=== PATIENT | female | born 1940 | race Two or more races ===

== ENCOUNTER 2019-07-18 11:21 | Inpatient (IN) | payer OTHER, MEDICAID ==
[~2019-07-18] VITALS: Ht 157.5 cm; Wt 49.4 kg
[2019-07-18] MEDS ORDERED: FAMOTIDINE 20MG/2ML VIAL IV STA (11:52)
[2019-07-18] MEDS ORDERED: SODIUM CHLORIDE 0.9% 1,000 ML IV ONE (11:52)
[2019-07-18] MEDS ORDERED: ONDANSETRON HCL 4MG/2ML INJ IV STA (11:52)
[2019-07-18 12:26] LABS: HEMATOCRIT. 48.3 % (36.0-48.0); HEMOGLOBIN. 16.4 g/dL (12.0-16.0); MEAN CORPUSCULAR HEMOGLOBIN 30.7 pg (28.0-32.0); MEAN CORPUSCULAR VOLUME 90.8 fL (81.0-99.0); MEAN PLATELET VOLUME 8.7 fl (7.4-10.4); PLATELET 330 x1000/uL (130-400); RED BLOOD CELL COUNT 5.32 mill/uL (4.2-5.4); RED CELL DISTRIBUTION WIDTH 13.6 % (11.6-14.6)
[2019-07-18 12:31] LABS: CHLORIDE 96 mEq/L (98-107)
[2019-07-18 12:31] LABS: BG BASE EXCESS -13.6 mmol/L (-2.0-2.0); BG CARBOXYHEMOGLOBIN 0.9 % (0.5-1.5); BG DEOXYHEMOGLOBIN 5.4 % (0.0-5.0); BG FRACTION INSPIRED OXYGEN 21; BG HCO3 ACT 11.7 mmol/L (22.0-26.0); BG METHEMOGLOBIN 0.2 % (0.0-1.5); BG OXYGEN SATURATION 94.5 % (92.0-98.5); BG OXYHEMOGLOBIN 93.5 % (94.0-97.0); BG PCO2 26.9 mmHg (35.0-45.0); BG PH 7.257 (7.350-7.450); BG SAMPLE SITE RIGHT BRACHIAL; BG TOTAL HEMOGLOBIN 15.9 g/dL (12.0-18.0); BG VENT MODE ROOM AIR
[2019-07-18 13:01] LABS: PLATELET ESTIMATE NORMAL
[2019-07-18] MEDS ORDERED: SODIUM BICARBONATE 8.4% 1 MEQ/ML 50ML SYR IV ONE (14:00)
[2019-07-18] MEDS ORDERED: LEVOFLOXACIN 500MG PREMIX 100 ML IV ONE (14:00)
[2019-07-18 15:40] VITALS: BP 110/56
[2019-07-18] MEDS ORDERED: AMLO2.5T45 MT (16:49)
[2019-07-18] MEDS ORDERED: METF-414 MT (16:49)
[2019-07-18] MEDS ORDERED: MORPHINE SULFATE 2 MG/ML CPJ (NOT FOR IM USE) IV PRN (18:45)
[2019-07-18] MEDS ORDERED: ONDANSETRON HCL 4MG/2ML INJ IV PRN (18:45)
[2019-07-18] MEDS ORDERED: DEXTROSE 50% WATER 50ML SYRINGE IV PRN (18:45)
[2019-07-18] MEDS ORDERED: ACETAMINOPHEN 650MG/20.3ML UDC PO PRN (18:45)
[2019-07-18 19:03] VITALS: BP 110/56
[2019-07-18 20:00] VITALS: BP 100/56
[2019-07-18] MEDS: BLOOD SUGAR DIAGNOSTIC STRIP TEST SCH (20:43)
[2019-07-18] MEDS ORDERED: ENOXAPARIN 40MG/0.4ML SYR SUBCUT SCH (21:00)
[2019-07-18] MEDS: INSULIN LISPRO 100 UNITS/ML SUBCUT SCH (21:42)
[2019-07-18] MEDS: SODIUM CHLORIDE 0.45% 1,000 ML IV SCH (21:42)
[2019-07-19] VITALS: BP 98/45
[2019-07-19 04:00] VITALS: BP 126/65
[2019-07-19] MEDS: BLOOD SUGAR DIAGNOSTIC STRIP TEST SCH ×4 (06:26→21:04)
[2019-07-19] MEDS: INSULIN LISPRO 100 UNITS/ML SUBCUT SCH ×4 (06:26→21:28)
[2019-07-19 08:00] VITALS: BP 107/54
[2019-07-19 12:00] VITALS: BP 121/54
[2019-07-19] MEDS: SODIUM CHLORIDE 0.45% 1,000 ML IV SCH ×2 (12:31→23:42)
[2019-07-19 13:08] LABS: BASOPHILS % 0.2 % (0.0-2.0); HEMOGLOBIN. 13.2 g/dL (12.0-16.0); LYMPHOCYTES % 19.1 % (20.0-50.0); MEAN CORPUSCULAR HEMOGLOBIN 30.4 pg (28.0-32.0); MEAN CORPUSCULAR VOLUME 89.8 fL (81.0-99.0); MEAN PLATELET VOLUME 8.6 fl (7.4-10.4); MONOCYTES % 8.4 % (2.0-8.0); NEUTROPHILS % 72.3 % (40.0-76.0); PLATELET 290 x1000/uL (130-400); RED BLOOD CELL COUNT 4.34 mill/uL (4.2-5.4); RED CELL DISTRIBUTION WIDTH 13.2 % (11.6-14.6)
[2019-07-19 13:27] LABS: CHLORIDE 103 mEq/L (98-107)
[2019-07-19 13:46] LABS: TOTAL IRON BINDING CAPACITY 288 ug/dL (250-450)
[2019-07-19] MEDS ORDERED: SORBITOL 70% SOLN 30ML PO NR (16:15)
[2019-07-19 16:47] LABS: TOTAL IRON BINDING CAPACITY 264 ug/dL (250-450)
[2019-07-19] MEDS: PANTOPRAZOLE SODIUM 40 MG/VIAL IV SCH (18:24)
[2019-07-19 20:00] VITALS: BP 117/75
[2019-07-19] MEDS ORDERED: ENOXAPARIN 30MG/0.3ML SYR SUBCUT SCH (21:00)
[2019-07-20] VITALS: BP 120/75
[2019-07-20 04:00] VITALS: BP 113/60
[2019-07-20] MEDS: BLOOD SUGAR DIAGNOSTIC STRIP TEST SCH (06:20)
[2019-07-20] MEDS: INSULIN LISPRO 100 UNITS/ML SUBCUT SCH (06:20)
[2019-07-20 08:00] VITALS: BP 124/56
[2019-07-20 08:27] LABS: BASOPHILS % 0.3 % (0.0-2.0); EOSINOPHILS % 0.6 % (0.0-5.0); HEMATOCRIT. 38.6 % (36.0-48.0); HEMOGLOBIN. 13.3 g/dL (12.0-16.0); LYMPHOCYTES % 31.5 % (20.0-50.0); MEAN CORPUSCULAR HEMOGLOBIN 30.7 pg (28.0-32.0); MEAN PLATELET VOLUME 8.4 fl (7.4-10.4); MONOCYTES % 8.1 % (2.0-8.0); NEUTROPHILS % 59.5 % (40.0-76.0); PLATELET 255 x1000/uL (130-400); RED BLOOD CELL COUNT 4.34 mill/uL (4.2-5.4); RED CELL DISTRIBUTION WIDTH 13.3 % (11.6-14.6)
[2019-07-20 08:37] LABS: CHLORIDE 106 mEq/L (98-107)
[2019-07-20] MEDS: PANTOPRAZOLE SODIUM 40 MG/VIAL IV SCH (08:50)
[2019-07-20 11:15] VITALS: BP 123/75
[2019-07-21 10:06] LABS: CANCER ANTIGEN 125 7.3 U/mL (0.0-38.1)
== END 2019-07-20 12:35 | disposition home or self-care (01) | DRG 378 ==
LOC: ER 11:21 → 5WST 13:39 → EDBEDREQ 13:41 → EDBEDREQTM 13:41 → ENRESERV 14:31 → 5WST 16:18
PROVIDERS: ADMIT Internal Medicine; ATTEND Internal Medicine
DX: K92.2 Gastrointestinal hemorrhage, unspecified (principal); E87.2 Acidosis; E11.65 Type 2 diabetes mellitus with hyperglycemia; E86.0 Dehydration; I10 Essential (primary) hypertension; K56.41 Fecal impaction; K57.90 Diverticulosis of intestine, part unspecified, without perforation or abscess without bleeding; N83.202 Unspecified ovarian cyst, left side; R93.89 Abnormal findings on diagnostic imaging of other specified body structures; Z79.82 Long term (current) use of aspirin; K76.89 Other specified diseases of liver
CPT/HCPCS: 36415; 36600; 71045; 74176; 76856; 80048; 80053; 82105; 82375; 82728; 82805; 82962; 83540; 83550; 83605; 83880; 84484; 85025; 85044; 86304; 86850; 86900; 87804; 93005; 97162; 97165; 99285; C9113; J1650; J1815; J1956; J2405; J3490; J7030

== ENCOUNTER 2021-09-12 11:19 | Inpatient (IN) | payer OTHER, MEDICAID ==
[~2021-09-12] VITALS: Ht 152.4 cm; Wt 47.8 kg
[~2021-09-12 11:19] MED LIST: ALEN70TA3 PO; AMLO1CAP PO; AMLO2.5T45 MT; GLIP10TA10 PO; METF-414 MT
[2021-09-12 14:32] LABS: BASOPHILS % 0.8 % (0.0-2.0); EOSINOPHILS % 2.2 % (0.0-5.0); HEMATOCRIT. 40.8 % (36.0-48.0); HEMOGLOBIN. 13.9 g/dL (12.0-16.0); LYMPHOCYTES % 22.3 % (20.0-50.0); MEAN CORPUSCULAR HEMOGLOBIN 30.8 pg (28.0-32.0); MEAN CORPUSCULAR VOLUME 90.3 fL (81.0-99.0); MEAN PLATELET VOLUME 8.3 fl (7.4-10.4); NEUTROPHILS % 68.7 % (40.0-76.0); PLATELET 223 x1000/uL (130-400); RED BLOOD CELL COUNT 4.52 mill/uL (4.2-5.4); RED CELL DISTRIBUTION WIDTH 13.4 % (11.6-14.6)
[2021-09-12 14:44] LABS: CHLORIDE 101 mEq/L (98-107)
[2021-09-12 16:02] LABS: PARTIAL THROMBOPLASTIN TIME 25.4 sec (23.4-31.0); PROTHROMBIN TIME 10.9 sec (9.6-11.0)
[2021-09-12] MEDS ORDERED: HEPARIN 5000 UNITS/ML VIAL IV SCH (16:30)
[2021-09-12] MEDS ORDERED: HEPARIN 25,000 UNITS in DEXT 5% WATER 250 ML IV PRN (17:00)
[2021-09-12] MEDS ORDERED: HEPARIN 5000 UNITS/ML VIAL IV PRN ×2 (22:00)
[2021-09-13] MEDS ORDERED: HYDROCODONE/ACETAMINOPHEN 5/325MG TABLET PO PRN (03:30)
[2021-09-13 10:30] VITALS: BP 140/59
[2021-09-13 11:07] VITALS: BP 140/59
[2021-09-13] MEDS ORDERED: LORAZEPAM 0.5MG TABLET PO PRN (11:15)
[2021-09-13] MEDS ORDERED: IPRATROPIUM/ALBUTEROL 0.5-3(2.5)MG/3ML NEB NEB PRN (11:15)
[2021-09-13] MEDS ORDERED: ACETAMINOPHEN 650MG SUPP PR PRN (11:15)
[2021-09-13] MEDS ORDERED: CLONIDINE 0.1MG TABLET PO PRN (11:15)
[2021-09-13] MEDS ORDERED: DEXTROSE 50% WATER 50ML SYRINGE IV PRN (11:15)
[2021-09-13] MEDS ORDERED: DOCUSATE SODIUM 100MG CAPSULE PO PRN (11:15)
[2021-09-13] MEDS ORDERED: GUAIFENESIN 200MG/10ML SUGAR FREE UDC PO PRN (11:15)
[2021-09-13] MEDS ORDERED: NALOXONE HCL 0.4MG/ML VIAL IV PRN (11:15)
[2021-09-13] MEDS ORDERED: MAGNESIUM/ALUMINUM HYDROXIDE/SIMETHICONE 30ML UDC PO PRN (11:15)
[2021-09-13] MEDS ORDERED: NA PHOS,M-B/NA PHOS,DI-BA ENEMA 118ML PR PRN (11:15)
[2021-09-13] MEDS ORDERED: DIPHENHYDRAMINE 50MG/ML VIAL IV PRN (11:15)
[2021-09-13] MEDS ORDERED: ONDANSETRON HCL 4MG/2ML INJ IV PRN (11:15)
[2021-09-13 12:00] VITALS: BP 141/65
[2021-09-13] MEDS: BLOOD SUGAR DIAGNOSTIC STRIP TEST SCH ×3 (12:10→21:54)
[2021-09-13] MEDS: HYDROCODONE/ACETAMINOPHEN 5/325MG TABLET PO PRN ×2 (12:42→17:29)
[2021-09-13] MEDS: INSULIN LISPRO 100 UNITS/ML SUBCUT SCH ×3 (12:45→21:53)
[2021-09-13 12:46] LABS: BG BASE EXCESS 0.2 mmol/L (-2.0-2.0); BG DEOXYHEMOGLOBIN 3.8 % (0.0-5.0); BG FRACTION INSPIRED OXYGEN 21; BG METHEMOGLOBIN 0.3 % (0.0-1.5); BG OXYGEN SATURATION 96.1 % (92.0-98.5); BG OXYHEMOGLOBIN 94.9 % (94.0-97.0); BG PCO2 41.2 mmHg (35.0-45.0); BG PH 7.401 (7.350-7.450); BG SAMPLE SITE RIGHT RADIAL; BG TOTAL HEMOGLOBIN 13.9 g/dL (12.0-18.0); BG VENT MODE ROOM AIR
[2021-09-13 15:36] LABS: BASOPHILS % 0.8 % (0.0-2.0); EOSINOPHILS % 2.9 % (0.0-5.0); HEMATOCRIT. 38.5 % (36.0-48.0); MEAN CORPUSCULAR HEMOGLOBIN 30.4 pg (28.0-32.0); MEAN PLATELET VOLUME 8.9 fl (7.4-10.4); NEUTROPHILS % 63.3 % (40.0-76.0); PLATELET 252 x1000/uL (130-400); RED BLOOD CELL COUNT 4.28 mill/uL (4.2-5.4); RED CELL DISTRIBUTION WIDTH 13.6 % (11.6-14.6)
[2021-09-13 15:39] LABS: CHLORIDE 105 mEq/L (98-107)
[2021-09-13 15:48] LABS: CREATINE KINASE 27 IU/L (26-192)
[2021-09-13 15:50] LABS: CREATINE KINASE MB FRACTION < 1.0 ng/mL (0.5-3.6)
[2021-09-13 16:00] VITALS: BP 150/76
[2021-09-13 20:00] VITALS: BP 144/79
[2021-09-13] MEDS ORDERED: IOHEXOL-350 100 ML BOTTLE ONE (20:28)
[2021-09-13] MEDS: FAMOTIDINE 20MG TABLET PO SCH (21:54)
[2021-09-14] VITALS: BP 138/62
[2021-09-14 00:53] LABS: CREATINE KINASE 26 IU/L (26-192)
[2021-09-14 00:54] LABS: CREATINE KINASE MB FRACTION < 1.0 ng/mL (0.5-3.6)
[2021-09-14 04:00] VITALS: BP 115/66
[2021-09-14 05:03] LABS: CLARITY URINE CLEAR (CLEAR); COLOR URINE YELLOW (YELLOW); KETONES URINE 1+ (NEGATIVE); LEUKOCYTE ESTERASE URINE NEGATIVE (NEGATIVE); NITRITE URINE NEGATIVE (NEGATIVE); OCCULT BLOOD URINE NEGATIVE (NEGATIVE); PH URINE 6.5 (4.5-8.0); PROTEIN URINE NEGATIVE (NEGATIVE); SPECIFIC GRAVITY URINE 1.018 (1.005-1.030); UROBILINOGEN URINE 0.2 E.U./dL (0.2-1.0)
[2021-09-14] MEDS: INSULIN LISPRO 100 UNITS/ML SUBCUT SCH ×4 (06:39→21:47)
[2021-09-14] MEDS: BLOOD SUGAR DIAGNOSTIC STRIP TEST SCH ×4 (06:40→20:38)
[2021-09-14 07:11] LABS: CHLORIDE 104 mEq/L (98-107)
[2021-09-14 07:18] LABS: LDL CHOLESTEROL 150 mg/dL (5-100)
[2021-09-14 07:19] LABS: HDL CHOLESTEROL 66 mg/dL (40-59)
[2021-09-14 07:45] LABS: BASOPHILS % 0.8 % (0.0-2.0); EOSINOPHILS % 4.3 % (0.0-5.0); HEMATOCRIT. 42.5 % (36.0-48.0); HEMOGLOBIN. 14.4 g/dL (12.0-16.0); LYMPHOCYTES % 29.7 % (20.0-50.0); MEAN CORPUSCULAR HEMOGLOBIN 30.8 pg (28.0-32.0); MEAN CORPUSCULAR VOLUME 90.8 fL (81.0-99.0); MEAN PLATELET VOLUME 9.6 fl (7.4-10.4); MONOCYTES % 7.3 % (2.0-8.0); NEUTROPHILS % 57.9 % (40.0-76.0); PLATELET 269 x1000/uL (130-400); RED BLOOD CELL COUNT 4.69 mill/uL (4.2-5.4); RED CELL DISTRIBUTION WIDTH 13.3 % (11.6-14.6)
[2021-09-14 08:00] VITALS: BP 134/62
[2021-09-14] MEDS: HYDROCODONE/ACETAMINOPHEN 5/325MG TABLET PO PRN (11:04)
[2021-09-14 12:00] VITALS: BP 133/60
[2021-09-14] MEDS: ENOXAPARIN 60MG/0.6ML SYR SUBCUT SCH (15:47)
[2021-09-14 16:00] VITALS: BP 146/75
[2021-09-14 20:16] VITALS: BP 128/78
[2021-09-14] MEDS: FAMOTIDINE 20MG TABLET PO SCH (20:39)
[2021-09-14] MEDS: ATORVASTATIN CALCIUM 20MG TABLET PO SCH (20:39)
[2021-09-14] MEDS: MORPHINE SULFATE 2 MG/ML CPJ (NOT FOR IM USE) IV PRN (20:41)
[2021-09-15] MEDS: DEXT 5%/0.9% NACL 1,000 ML IV SCH ×2 (00:14→17:59)
[2021-09-15 00:26] VITALS: BP 118/60
[2021-09-15] MEDS: ENOXAPARIN 60MG/0.6ML SYR SUBCUT SCH ×2 (02:16→14:26)
[2021-09-15] MEDS: MORPHINE SULFATE 2 MG/ML CPJ (NOT FOR IM USE) IV PRN (02:18)
[2021-09-15 04:39] VITALS: BP 157/71
[2021-09-15] MEDS: BLOOD SUGAR DIAGNOSTIC STRIP TEST SCH ×4 (05:51→21:21)
[2021-09-15] MEDS: INSULIN LISPRO 100 UNITS/ML SUBCUT SCH ×4 (07:10→21:22)
[2021-09-15 07:32] LABS: CHLORIDE 104 mEq/L (98-107)
[2021-09-15 07:36] LABS: BASOPHILS % 0.7 % (0.0-2.0); EOSINOPHILS % 2.6 % (0.0-5.0); HEMATOCRIT. 39.6 % (36.0-48.0); HEMOGLOBIN. 13.5 g/dL (12.0-16.0); LYMPHOCYTES % 19.4 % (20.0-50.0); MEAN CORPUSCULAR HEMOGLOBIN 30.9 pg (28.0-32.0); MEAN CORPUSCULAR VOLUME 90.8 fL (81.0-99.0); MEAN PLATELET VOLUME 8.6 fl (7.4-10.4); MONOCYTES % 7.7 % (2.0-8.0); NEUTROPHILS % 69.6 % (40.0-76.0); PLATELET 258 x1000/uL (130-400); RED BLOOD CELL COUNT 4.36 mill/uL (4.2-5.4); RED CELL DISTRIBUTION WIDTH 13.3 % (11.6-14.6)
[2021-09-15 08:00] VITALS: BP 138/66
[2021-09-15 12:00] VITALS: BP 141/69
[2021-09-15 16:00] VITALS: BP 116/59
[2021-09-15 20:00] VITALS: BP 139/71
[2021-09-15] MEDS: FAMOTIDINE 20MG TABLET PO SCH (21:21)
[2021-09-15] MEDS: ATORVASTATIN CALCIUM 20MG TABLET PO SCH (21:21)
[2021-09-16] VITALS (31 sets, daily range): BP systolic 70–183; BP diastolic 39–89
[2021-09-16] MEDS: ENOXAPARIN 60MG/0.6ML SYR SUBCUT SCH ×2 (03:38→13:49)
[2021-09-16] MEDS: BLOOD SUGAR DIAGNOSTIC STRIP TEST SCH ×4 (05:46→21:02)
[2021-09-16] MEDS: INSULIN LISPRO 100 UNITS/ML SUBCUT SCH ×5 (06:16→21:02)
[2021-09-16] MEDS ORDERED: LIDOCAINE HCL 1% 30ML VIAL (10MG/ML) ONE (08:55)
[2021-09-16] MEDS ORDERED: IODIXANOL 320MG/ML 100 ML BOTTLE IV ONE (08:56)
[2021-09-16] MEDS ORDERED: CALCIUM CHLORIDE 1GM/10ML SYR IV ONE (09:22)
[2021-09-16] MEDS ORDERED: ALBUMIN HUMAN 12.5G/250ML (5%) IV ONE (09:22)
[2021-09-16] MEDS ORDERED: DEXAMETHASONE 4MG/ML 1ML VIAL ONE (09:22)
[2021-09-16] MEDS ORDERED: ATROPINE SULFATE 1MG/10ML SYR IV PRN (11:45)
[2021-09-16] MEDS ORDERED: ASPIRIN 325MG EC TABLET PO NR (12:15)
[2021-09-16 13:01] LABS: BG BASE EXCESS -4.2 mmol/L (-2.0-2.0); BG CARBOXYHEMOGLOBIN 0.6 % (0.5-1.5); BG DEOXYHEMOGLOBIN 17.5 % (0.0-5.0); BG FRACTION INSPIRED OXYGEN 50; BG HCO3 ACT 22.6 mmol/L (22.0-26.0); BG METHEMOGLOBIN 0.2 % (0.0-1.5); BG OXYGEN SATURATION 82.4 % (92.0-98.5); BG OXYHEMOGLOBIN 81.7 % (94.0-97.0); BG PCO2 48.5 mmHg (35.0-45.0); BG PH 7.287 (7.350-7.450); BG PO2 48.9 mmHg (75.0-100.0); BG SAMPLE SITE Other; BG TOTAL HEMOGLOBIN 13.7 g/dL (12.0-18.0)
[2021-09-16] MEDS: DEXT 5%/0.9% NACL 1,000 ML IV SCH (13:53)
[2021-09-16 15:04] LABS: HEMATOCRIT. 38.3 % (36.0-48.0); HEMOGLOBIN. 12.9 g/dL (12.0-16.0); MEAN CORPUSCULAR HEMOGLOBIN 30.3 pg (28.0-32.0); MEAN CORPUSCULAR VOLUME 90.2 fL (81.0-99.0); MEAN PLATELET VOLUME 8.5 fl (7.4-10.4); PLATELET 253 x1000/uL (130-400); RED BLOOD CELL COUNT 4.25 mill/uL (4.2-5.4); RED CELL DISTRIBUTION WIDTH 13.5 % (11.6-14.6)
[2021-09-16 15:11] LABS: CHLORIDE 105 mEq/L (98-107)
[2021-09-16 15:17] LABS: PHOSPHORUS 3.9 mg/dL (2.5-4.9)
[2021-09-16 15:43] LABS: PLATELET ESTIMATE NORMAL
[2021-09-16] MEDS ORDERED: MAGNESIUM 2 G PREMIX 50 ML IV NR (20:00)
[2021-09-16] MEDS: HYDROCODONE/ACETAMINOPHEN 5/325MG TABLET PO PRN (20:08)
[2021-09-16] MEDS: ATORVASTATIN CALCIUM 20MG TABLET PO SCH (21:01)
[2021-09-16] MEDS: FAMOTIDINE 20MG TABLET PO SCH (21:01)
[2021-09-17] VITALS: BP 139/66
[2021-09-17 04:00] VITALS: BP 117/83
[2021-09-17] MEDS: ENOXAPARIN 60MG/0.6ML SYR SUBCUT SCH ×2 (05:04→15:44)
[2021-09-17] MEDS: DEXT 5%/0.9% NACL 1,000 ML IV SCH (05:04)
[2021-09-17 07:18] LABS: BASOPHILS % 0.5 % (0.0-2.0); EOSINOPHILS % 1.2 % (0.0-5.0); HEMOGLOBIN. 12.4 g/dL (12.0-16.0); LYMPHOCYTES % 23.8 % (20.0-50.0); MEAN CORPUSCULAR HEMOGLOBIN 30.6 pg (28.0-32.0); MEAN CORPUSCULAR VOLUME 91.4 fL (81.0-99.0); MEAN PLATELET VOLUME 9.1 fl (7.4-10.4); MONOCYTES % 8.1 % (2.0-8.0); NEUTROPHILS % 66.4 % (40.0-76.0); PLATELET 261 x1000/uL (130-400); RED BLOOD CELL COUNT 4.05 mill/uL (4.2-5.4); RED CELL DISTRIBUTION WIDTH 13.5 % (11.6-14.6)
[2021-09-17] MEDS: BLOOD SUGAR DIAGNOSTIC STRIP TEST SCH ×2 (07:20→12:44)
[2021-09-17 07:28] LABS: CHLORIDE 108 mEq/L (98-107)
[2021-09-17 07:35] VITALS: BP 126/60
[2021-09-17] MEDS: HYDROCODONE/ACETAMINOPHEN 5/325MG TABLET PO PRN (09:00)
[2021-09-17] MEDS ORDERED: ASPIRIN 81MG EC TABLET PO SCH (09:00)
[2021-09-17] MEDS: INSULIN LISPRO 100 UNITS/ML SUBCUT SCH ×2 (09:02→12:58)
[2021-09-17 12:00] VITALS: BP 120/56
[2021-09-17] MEDS ORDERED: LOV40 SQ (12:53)
[2021-09-17] MEDS ORDERED: ASPI-1497 MT (12:53)
[2021-09-17 16:35] VITALS: BP 117/62
== END 2021-09-17 18:03 | disposition home or self-care (01) | DRG 271 ==
LOC: ER 11:29 → MICUSO 18:21 → 7EST 09-13 10:09 → CVICU 09-16 11:45 → 6WST 09-16 22:25
PROVIDERS: ADMIT Internal Medicine; ATTEND Internal Medicine
PROC: 04CD3ZZ Extirpation of Matter from Left Common Iliac Artery, Percutaneous Approach (ICD-10-PCS; principal; 2021-09-16)
PROC: 04CJ3ZZ Extirpation of Matter from Left External Iliac Artery, Percutaneous Approach (ICD-10-PCS; 2021-09-16)
PROC: 04CL3ZZ Extirpation of Matter from Left Femoral Artery, Percutaneous Approach (ICD-10-PCS; 2021-09-16)
PROC: 04CN3ZZ Extirpation of Matter from Left Popliteal Artery, Percutaneous Approach (ICD-10-PCS; 2021-09-16)
PROC: 04HD3DZ Insertion of Intraluminal Device into Left Common Iliac Artery, Percutaneous Approach (ICD-10-PCS; 2021-09-16)
PROC: B51C1ZA Fluoroscopy of Left Lower Extremity Veins using Low Osmolar Contrast, Guidance (ICD-10-PCS; 2021-09-16)
PROC: B51H1ZA Fluoroscopy of Bilateral Pelvic (Iliac) Veins using Low Osmolar Contrast, Guidance (ICD-10-PCS; 2021-09-16)
PROC: B5191ZA Fluoroscopy of Inferior Vena Cava using Low Osmolar Contrast, Guidance (ICD-10-PCS; 2021-09-16)
DX: I82.432 Acute embolism and thrombosis of left popliteal vein (principal); M48.56XA Collapsed vertebra, not elsewhere classified, lumbar region, initial encounter for fracture; E46 Unspecified protein-calorie malnutrition; E11.65 Type 2 diabetes mellitus with hyperglycemia; I10 Essential (primary) hypertension; I82.422 Acute embolism and thrombosis of left iliac vein; I82.412 Acute embolism and thrombosis of left femoral vein; Z20.822 Contact with and (suspected) exposure to COVID-19; I82.492 Acute embolism and thrombosis of other specified deep vein of left lower extremity; R32 Unspecified urinary incontinence; R33.9 Retention of urine, unspecified; Z68.20 Body mass index [BMI] 20.0-20.9, adult; Z79.899 Other long term (current) drug therapy; I95.9 Hypotension, unspecified
CPT/HCPCS: 36415; 36569; 36600; 36904; 37187; 37238; 37239; 37252; 37253; 71045; 71275; 72131; 72148; 72193; 73700; 73701; 75736; 75820; 75825; 76937; 80048; 80053; 80061; 81003; 82375; 82550; 82553; 82805; 82962; 83036; 83735; 84100; 84443; 84484; 85025; 85347; 86304; 87426; 93306; 93971; 97162; 97166; 97535; 99285; C1725; C1753; C1769; C1887; C1893; C1894; J1100; J1644; J1650; J1815; J2270; J3475; J3490; J7042; J7060; P9041; Q9967; C1876